=== PATIENT | female | born 1980 | race Caucasian/White ===

== ENCOUNTER → 2020-12-12 | Outpatient (CLI) | payer OTHER ==
--- NOTE | 2020-12-12 15:47 | REP ---
INDICATION: OTHER CHRONIC PAIN COMPARISON: None. TECHNIQUE: AP, lateral, bilateral oblique, and coned-down views of the lumbar spine. FINDINGS: Alignment and lordosis maintained. Vertebral bodies are intact. No acute fracture/compression injury or subluxation. No evidence for spondylolysis or spondylolisthesis. Very minimal disc space narrowing at L3-4 along with very minimal age-related changes including very subtle early marginal spurring and mild facet hypertrophy suggested. IMPRESSION: Minimal age-related degenerative changes suggested. <Electronically signed by Basilio Brush > 12/12/20 1886
== END ==
LOC: M PLAIMG 15:04
PROVIDERS: ATTEND Physician Assistant
DX: G89.29 Other chronic pain (principal)

== ENCOUNTER → 2024-06-15 | Outpatient (CLI) | payer OTHER | LOC: M RAD 15:55 | PROVIDERS: ATTEND Physician Assistant | DX: R91.8 Other nonspecific abnormal finding of lung field (principal); R06.02 Shortness of breath; Z87.891 Personal history of nicotine dependence ==

== ENCOUNTER → 2024-07-25 | Outpatient (CLI) | payer OTHER ==
[~2024-07-25] MED LIST: METHACHOLINE KIT (6 VIAL.NEB PREMIX) INH ONE
== END ==
LOC: M CARPUL 08:28
PROVIDERS: ATTEND Physician Assistant
DX: R06.02 Shortness of breath (principal)
CPT/HCPCS: 88738; 94010; 94726; 94729; 95070; J7674

== ENCOUNTER → 2024-08-07 | Outpatient (CLI) | payer OTHER ==
[2024-08-07 12:27] LABS: C REACTIVE PROTEIN QUANTITATIV < 0.50 MG/DL (<1.0)
[2024-08-07 13:12] LABS: RHEUMATOID FACTOR QUANT 11.3 IU/ML (<14)
[2024-08-09 13:47] LABS: ANA SCREEN, IFA NEGATIVE (NEGATIVE)
[2024-08-09 17:32] LABS: RNP ANTIBODY <1.0 NEG AI (<1.0 NEG); SM ANTIBODY <1.0 NEG AI (<1.0 NEG); SSA SJOGRENS A <1.0 NEG AI (<1.0 NEG); SSB SJOGRENS B <1.0 NEG AI (<1.0 NEG)
== END ==
LOC: M LAB 10:16
PROVIDERS: ATTEND Physician Assistant
DX: R91.8 Other nonspecific abnormal finding of lung field (principal)